=== PATIENT | female | born 1975 | race Caucasian/White ===

== ENCOUNTER 2017-07-19 12:10 | Emergency (ER) | payer OTHER ==
[~2017-07-19] VITALS: Ht 162.6 cm; Wt 63.5 kg
--- NOTE | 2017-07-19 12:15 | NUR ---
[id number] FOR ETOH INTOXICATION. PATIENT IS A/OX 3, BREATHING EVEN AND UNLABORED. NO SOB, NAD, VITALS STABLE. SAFETY AND COMFORT MEASURES IN PLACE. AWAITING MD ORDERS. Addendum: 07/19/17 at 1233 by THOR CORRECTION: PATIENT IS A/OX 1 AT THIS TIME D/T ALCOHOL INTOXICATION.
[2017-07-19 12:47] LABS: BASOPHILS # (AUTO) 0.1 /CMM (0.0-0.2); BASOPHILS % (AUTO) 1.1 % (0.0-2.0); EOSINOPHILS % (AUTO) 0.4 % (0.0-6.0); HEMATOCRIT 40 % (33-45); HEMOGLOBIN 13.8 g/dL (11.5-14.8); LYMPHOCYTES # (AUTO) 3.5 /CMM (0.8-4.8); LYMPHOCYTES % (AUTO) 44.1 % (20.0-44.0); MEAN CORPUSCULAR HGB CONC 35 g/dl (31.0-36.0); MEAN CORPUSCULAR VOLUME 86 fL (82-100); MONOCYTES # (AUTO) 0.4 /CMM (0.1-1.30); MONOCYTES % (AUTO) 5.5 % (2.0-12.0); NEUTROPHILS # (AUTO) 3.9 /CMM (1.8-8.9); NEUTROPHILS % (AUTO) 48.9 % (43.0-81.0); PLATELET COUNT (AUTO) 356 /CMM (150-450); RDW COEFFICIENT OF VARIATION 13.3 (11.5-15.0); RED BLOOD CELL COUNT(AUTO) 4.62 MIL/uL (4.0-5.2); WHITE BLOOD COUNT (AUTO) 7.9 K/uL (4.3-11.0)
[2017-07-19 12:53] LABS: CALCIUM, SERUM 8.1 mg/dL (8.5-10.1); CREATININE 0.7 mg/dL (0.6-1.3); POTASSIUM 3.4 mmol/L (3.5-5.1)
[2017-07-19 13:06] LABS: ALBUMIN 3.8 g/dL (3.4-5.0); BILIRUBIN,TOTAL 0.2 mg/dL (0.2-1.0); SALICYLATE 1.2 mg/dL (2.8-20.0); TOTAL PROTEIN, SERUM 7.9 g/dL (6.4-8.2)
[2017-07-19] MEDS ORDERED: HALOPERIDOL LACTATE INJ 5 MG/ML VIAL ONE (13:39)
[2017-07-19] MEDS: HALOPERIDOL LACTATE INJ 5 MG/ML VIAL IM ONE (13:43)
--- NOTE | 2017-07-19 19:00 | NUR ---
REPORT GIVEN TO FELICIANO MORALES FOR HUM[facility]ERTO.
--- NOTE | 2017-07-19 19:00 | NUR ---
RECEIVED REPORT FROM ANDREW JOE FOR HUMBERTO.
--- NOTE | 2017-07-19 19:45 | NUR ---
Patient is resting comfortably in bed with eyes closed. Easily aroused. VSS
--- NOTE | 2017-07-19 21:44 | NUR ---
PT AWARE AND ALERT. DR. MUNROE AT BEDSIDE FOR EVAL. PT EXPRESSED TO MD +DALI BECAUSE " I CANNOT STOP DRINKING"
--- NOTE | 2017-07-19 21:47 | NUR ---
SPOKE TO ALEJANDRA FROM [facility]. [phone] [id number], [facility] [id number]
--- NOTE | 2017-07-19 22:14 | NUR ---
URINE COLLECTED. CALLED LAB FOR SPONGE PACKER
[2017-07-19 22:28] LABS: APPEARANCE,URINE CLEAR (CLEAR); BILIRUBIN,URINE NEGATIVE (NEGATIVE); BLOOD, URINE NEGATIVE Ery/uL (NEGATIVE); COLOR,URINE YELLOW (YELLOW); KETONES,URINE NEGATIVE (NEGATIVE); LEUKOCYTE ESTERASE ,URINE NEGATIVE (NEGATIVE); NITRITE, URINE NEGATIVE (NEGATIVE); PH,URINE 5.5 (5.0-8.0); PROTEIN,URINE NEGATIVE (NEGATIVE); UGLUCOSE NEGATIVE (NEGATIVE); UROBILINOGEN,URINE 0.2 EU/dL (0.2)
--- NOTE | 2017-07-19 23:09 | NUR ---
ALEJANDRA FROM [facility] AT BEDSIDE.
--- NOTE | 2017-07-19 23:20 | NUR ---
ART PAGED FOR PSYCH EVAL.
[2017-07-19] MEDS ORDERED: ONDANSETRON 4 MG TAB.RAPDIS ONE (23:33)
[2017-07-19] MEDS: ONDANSETRON 4 MG TAB.RAPDIS SL ONE (23:35)
--- NOTE | 2017-07-19 23:39 | NUR ---
ART AT BEDSIDE FOR EVAL.
[2017-07-20] MEDS ORDERED: ONDANSETRON HCL/PF 4 MG/2 ML VIAL ONE ×2 (00:20→01:44)
[2017-07-20] MEDS: IV NS 0.9% 1,000 ML BAG IV ONE (00:20)
--- NOTE | 2017-07-20 00:20 | NUR ---
PT MOVED TO ER BED 5. PT WITH ALL BELONGINGS.
[2017-07-20] MEDS: ONDANSETRON HCL/PF 4 MG/2 ML VIAL IVP ONE (00:22)
--- NOTE | 2017-07-20 01:26 | NUR ---
Patient is resting comfortably in bed with eyes closed. Easily aroused. VSS
[2017-07-20] MEDS: ONDANSETRON HCL/PF - ER 4 MG/2 ML VIAL IV ONE (01:52)
--- NOTE | 2017-07-20 04:20 | NUR ---
Patient is resting comfortably in bed with eyes closed. Easily aroused. VSS
--- NOTE | 2017-07-20 05:51 | NUR ---
FAXED REPEAT ALCOHOL TO [facility] INTAKE COORD SO ALKA [facility] LA [facility].
[2017-07-20] MEDS ORDERED: LORAZEPAM 1 MG TABLET ONE (05:56)
--- NOTE | 2017-07-20 05:56 | NUR ---
PT AO, STABLE GAIT, DR. CUNNINGHAM MADE AWARE
--- NOTE | 2017-07-20 05:58 | NUR ---
REPORT GIVEN TO DENISSE DE LA CRUZ. JOSÉ MIGUEL AWARE PT CURRENT SERUM ALCOHOL LEVEL 67MG/DL
[2017-07-20] MEDS: LORAZEPAM 1 MG TABLET PO ONE (05:59)
[2017-07-20 06:22] VITALS: BP 128/64
--- NOTE | 2017-07-20 06:22 | NUR ---
Patient discharged to home in stable condition. Written and verbal after care instructions given. Patient verbalizes understanding of instruction. Ambulatory with a steady gait. IV removed. Catheter intact and site benign. Pressure and 4x4 applied to site. No bleeding noted.
== END 2017-07-20 06:23 | disposition short-term general hospital (02) ==
LOC: ER 12:15
DX: F10.129 Alcohol abuse with intoxication, unspecified (principal); R45.851 Suicidal ideations
CPT/HCPCS: 36415; 80048-TC; 80076-TC; 80305; 81000-TC; 85025-TC; A4606; G0480; J1630; J2405; J7030; Q0162; Z7610